=== PATIENT | female | born 2000 | race Caucasian/White ===

== ENCOUNTER → 2021-08-15 | Outpatient (CLI) | payer OTHER | LOC: LAB 17:18 | DX: L02.91 Cutaneous abscess, unspecified (principal) ==

== ENCOUNTER → 2022-06-12 | Outpatient (CLI) | payer OTHER | LOC: LAB 09:37 | DX: Z94.0 Kidney transplant status (principal) ==

== ENCOUNTER → 2022-06-28 | Outpatient (CLI) | payer OTHER | LOC: LAB 09:16 | DX: Z94.4 Liver transplant status (principal) ==